=== PATIENT | female | born 1990 | race Hispanic/Latino ===

== ENCOUNTER 2017-12-03 20:08 | Emergency (ER) | payer SELFPAY ==
--- NOTE | 2017-12-03 20:33 | ED.PDOC ---
History of Present Illness - General Chief Complaint: Lower Extremity Injury Stated Complaint: right pinky toe injury Time Seen by Provider: 12/03/17 20:30 Source: patient - History of Present Illness Initial Comments: THE PATIENT PRESENTS TO THE ED W/ COMPLAINT OF RIGHT 5TH TOE PAIN S/P STRIKING IT ON A WALL AT HOME. THE PATIENT HAS NO OTHER ACUTE COMPLAINTS. Occurred: yesterday Pain - Lower Extremity: mild: Right Foot Method of Injury: direct blow Improving Factors: immobilization Worsening Factors: movement Allergies/Adverse Reactions: Allergies Penicillins Allergy (Verified 12/03/17 20:29) Home Medications: Ambulatory Orders Benzocaine (Rectal) [Americaine] 20 % PA BID PRN #30 oin 03/29/15 Review of Systems - Review of Systems Musculoskeletal: States: see HPI All other Systems: Reviewed and Negative Past Medical History (General) - Patient Medical History Hx Seizures: No Hx Stroke: No Hx Dementia: No Hx Asthma: No Hx of COPD: No Hx Cardiac Disorders: No Hx Congestive Heart Failure: No Hx Pacemaker: No Hx Hypertension: No Hx Thyroid Disease: No Hx Diabetes: No Hx Gastroesophageal Reflux: No Hx Renal Disease: No Hx of HIV: No Hx MRSA: No Surgical History: appendectomy, cholecystectomy - Vaccination History Hx Tetanus, Diphtheria Vaccination: Yes Hx Influenza Vaccination: No Hx Pneumococcal Vaccination: No - Social History Hx Tobacco Use: No Hx Alcohol Use: No Hx Substance Use: No Hx Substance Use Treatment: No Hx Depression: No - Female History Hx Last Menstrual Period: 05/31/13 Patient : No Expected Date of Delivery:: 03/07/14 Family Medical History - Family History Mother Maternal Grandparents Living Status: Hx Family Diabetes: Yes Mother Maternal Living Status: Still Living Hx Family Asthma: Yes Hx Family;Other: Pt mother has asthma Grandparents Living Status: Hx Family Stroke: Yes Hx Family;Other: Pt states on her fathers side her grandfather had a stroke Physical Exam - Physical Exam General Appearance: Alert, Comfortable Eyes, Ears, Nose, Throat: PERRL/EOMI Neck: non-tender, full range of motion Cardiovascular/Respiratory: regular rate, rhythm Gastrointestinal/Abdominal: non-tender, no organomegaly Back: normal inspection Leg: normal inspection Knee: normal inspection Ankle: normal inspection Foot: other - THERE IS TTP OF THE RIGHT 5TH TOE WELL THE DORSUM OF THE MIDFOOT. THERE IS NO TENDERNESS IN THE 5TH METATARSAL Progress - Progress Progress: 12/03/17 20:34 MDM PATIENT PRESENTATION APPEARS TO BE CONSISTENT WITH INJURIES DUE TO TRAUMA. WILL ORDER IMAGING OF AREAS THAT WERE INJURED(RIGHT FOOT) TO EVALUATE FOR EMERGENT PATHOLOGY IN THESE AREAS. IF NOTHING EMERGENT FOUND, DISPO WILL BE HOME. 12/03/17 22:07 THE PATIENT IS DOING WELL AT THIS TIME. SHE HAS BEEN ADVISED THAT HER RIGHT FOOT X-RAY IS NOTED TO SHOW A FX OF THE RIGHT 5TH TOE AT THIS TIME. SHE IS ADVISED SHE MUST FOLLOW UP WITH HER PCP NOTED IN HER D/C INSTRUCTIONS AND TO RETURN TO THE ED IF ANY ACUTE CONCERNS ARISE. - Results/Orders Results/Orders: RIGHT FOOT X-RAY: +FX OF THE 5TH TOE Departure - Departure Clinical Impression: Toe fracture, right Qualifiers: Encounter type: initial encounter Toe: unspecified toe Fracture alignment: nondisplaced Disposition: Discharge to Home or Self Care Departure Forms: ED Discharge - Pt. Copy, Patient Portal Self Enrollment Instructions: DI for Trauma, Foot Fracture (DC) Referrals: Denisse Barksdale NP [Primary Care Provider] - 1-5 Days (PLEASE SEE YOUR PCP IN 3 DAYS FOR RE-EVALUATION AND CARE. PLEASE WEAR POST OPERATIVE SHOE UNTIL CLEARED BY YOUR PCP. PLEASE RETURN TO THE ED IF YOU HAVE ANY ACUTE ISSUES ARISE.) Home Medications: Ambulatory Orders Benzocaine (Rectal) [Americaine] 20 % PA BID PRN #30 oin 03/29/15
--- NOTE | 2017-12-03 21:43 | RAD ---
EXAM: Foot,Right 3 Views CLINICAL INDICATION: 27-year-old female status post trauma, hit foot on bathroom door. TECHNIQUE: Three views RIGHT foot were obtained in AP, lateral and oblique projections COMPARISON: None. FINDINGS: Mildly displaced fracture of the base of the medial aspect of the proximal phalanx of the fifth digit. The joint spaces are preserved. No soft tissue abnormalities are seen. Hallux valgus deformity. IMPRESSION: Fifth digit fracture. Electronically signed by: Leida Hernandez MD 12/03/2017 9:42 PM CDT
[2017-12-03] MEDS: ACETAMINOPHEN 325 MG TAB PO ONE (22:55)
[2017-12-03 23:07] VITALS: BP 128/78; TEMP 97.8; O2SAT 98
== END 2017-12-03 23:07 | disposition home or self-care (01) ==
LOC: ER 20:08
DX: S92.511A Displaced fracture of proximal phalanx of right lesser toe(s), initial encounter for closed fracture (principal); W22.09XA Striking against other stationary object, initial encounter; Y92.009 Unspecified place in unspecified non-institutional (private) residence as the place of occurrence of the external cause

== ENCOUNTER 2018-06-17 12:58 | Emergency (ER) | payer SELFPAY ==
[2018-06-17] MEDS ORDERED: ONDANSETRON INJ 4 MG/2 ML VIAL IV ONE (13:24)
[2018-06-17] MEDS ORDERED: HYOSCYAMINE SULFATE 0.5 MG/ML VIAL IV ONE (13:25)
[2018-06-17] MEDS ORDERED: PANTOPRAZOLE SODIUM IV 40 MG VIAL IV ONE (13:25)
[2018-06-17] MEDS ORDERED: KETOROLAC TROMETHAMINE INJ 30 MG/ML VIAL IV ONE (13:25)
--- NOTE | 2018-06-17 13:28 | ED.PDOC ---
History of Present Illness - General Chief Complaint: Abdominal Pain Stated Complaint: abdominal pain, nausea Time Seen by Provider: 06/17/18 13:20 Information Source: patient Exam Limitations: no limitations - History of Present Illness Initial Comments: Onset RUQ pain with n/v x 6 this am. Took laxative last pm with BM today. Denies fever, dysuria, back pain, or hx of gastritis. Pt had GB removed in past Abdominal Pain Onset Location: RUQ Pain Radiation: no radiation Quality: severe, burning, cramping Timing/Duration: 4-6 hours Improving Factors: movement Worsening Factors: nothing Associated Symptoms: nausea/vomiting Review of Systems - Review of Systems Constitutional: Denies: chills, fever EENTM: States: no symptoms reported Respiratory: States: no symptoms reported Cardiology: States: no symptoms reported Gastrointestinal/Abdominal: States: abdominal pain, constipation, nausea, vomiting Genitourinary: Denies: dysuria, frequency, pain Musculoskeletal: States: no symptoms reported Skin: States: no symptoms reported Neurological: States: no symptoms reported Endocrine: States: no symptoms reported Hematologic/Lymphatic: States: no symptoms reported Past Medical History (General) - Patient Medical History Hx Seizures: No Hx Stroke: No Hx Dementia: No Hx Asthma: No Hx of COPD: No Hx Cardiac Disorders: No Hx Congestive Heart Failure: No Hx Pacemaker: No Hx Hypertension: No Hx Thyroid Disease: No Hx Diabetes: No Hx Gastroesophageal Reflux: No Hx Renal Disease: No Hx of HIV: No Hx MRSA: No Surgical History: appendectomy, cholecystectomy - Vaccination History Hx Tetanus, Diphtheria Vaccination: No Hx Influenza Vaccination: No Hx Pneumococcal Vaccination: No - Social History Hx Tobacco Use: Yes Hx Alcohol Use: No Hx Substance Use: No Hx Substance Use Treatment: No Hx Depression: No - Female History Hx Last Menstrual Period: 05/31/13 Patient : No Expected Date of Delivery:: 03/07/14 Family Medical History - Family History Mother Maternal Grandparents Living Status: Hx Family Diabetes: Yes Mother Maternal Living Status: Still Living Hx Family Asthma: Yes Hx Family;Other: Pt mother has asthma Grandparents Living Status: Hx Family Stroke: Yes Hx Family;Other: Pt states on her fathers side her grandfather had a stroke Physical Exam - Physical Exam General Appearance: Alert, Obvious distress Eyes, Ears, Nose, Throat Exam: PERRL/EOMI Respiratory: lungs clear, normal breath sounds Cardiovascular/Chest: normal peripheral pulses, regular rate, rhythm, no edema Gastrointestinal/Abdominal: normal bowel sounds, soft, tenderness - in RUQ without guarding or rebound Back Exam: normal inspection, no CVA tenderness Extremity: normal range of motion, non-tender, normal inspection, no pedal edema Skin Exam: normal color Lymphatic: no adenopathy Departure - Departure Clinical Impression: Pyelonephritis Disposition: Discharge to Home or Self Care Condition: Fair Departure Forms: ED Discharge - Pt. Copy, Patient Portal Self Enrollment Instructions: DI for Abdominal Pain-Adult Referrals: Denisse Barksdale NP [Primary Care Provider] - 1-2 Weeks Prescriptions: Ondansetron [Zofran Odt] 4 mg PO Q4HR PRN #20 tab PRN Reason: Nausea RX: Tramadol HCl 50 mg PO Q6HR PRN #20 tab PRN Reason: Moderate To Severe Pain RX: Levofloxacin 750 mg PO DAILY #5 tablet Home Medications: Ambulatory Orders Ondansetron [Zofran Odt] 4 mg PO Q4HR PRN #20 tab 06/17/18 RX: Levofloxacin 750 mg PO DAILY #5 tablet 06/17/18 RX: Tramadol HCl 50 mg PO Q6HR PRN #20 tab 06/17/18
[2018-06-17] MEDS ORDERED: PROMETHAZINE HCL INJ 12.5 MG in SODIUM CHLORIDE 0.9% 50ML 50 ML IVPB ONE (14:12)
[2018-06-17] MEDS ORDERED: SODIUM CHLORIDE 0.9% 1000ML 1,000 ML IVS ONE (14:13)
[2018-06-17] MEDS ORDERED: cefTRIAXone SODIUM 1 GM in SODIUM CHL 0.9% 50ML MIN-BAG+ 50 ML IVPB ONE (14:13)
[2018-06-17] MEDS ORDERED: MORPHINE SULFATE INJ 10 MG/ML VIAL IV ONE (14:13)
--- NOTE | 2018-06-17 14:16 | RAD ---
EXAM DESCRIPTION: KUB CLINICAL HISTORY: ruq PAIN COMPARISON: CT abdomen and pelvis April 26, 2011 TECHNIQUE: KUB FINDINGS: Small punctate densities in the right upper and right lower abdomen are thought to be colonic contents. No renal calculi. No small bowel dilatation to suggest obstruction. There is an otherwise unremarkable bowel gas pattern. There is no mass visceromegaly. IMPRESSION: No acute process. Electronically signed by: Baltazar Wall MD 06/17/2018 2:15 PM CREW MESS ATTENDANT
[2018-06-17] MEDS ORDERED: PROMETHAZINE HCL INJ 25 MG/ML VIAL ONE (14:24)
[2018-06-17] MEDS ORDERED: cefTRIAXone SODIUM 1 GM VIAL ONE (14:24)
[2018-06-17] MEDS ORDERED: SODIUM CHLORIDE 0.9% 50ML 50 ML ONE (14:25)
[2018-06-17 15:59] VITALS: BP 117/70; TEMP 98.3; O2SAT 98
== END 2018-06-17 16:01 | disposition home or self-care (01) ==
LOC: ER 12:58
DX: N12 Tubulo-interstitial nephritis, not specified as acute or chronic (principal); R10.11 Right upper quadrant pain; Z90.49 Acquired absence of other specified parts of digestive tract; Z87.891 Personal history of nicotine dependence
CPT/HCPCS: 74018; 80053; 81001; 85025; 87086; A4216; J0696; J1885; J2270; J2405; J2550; J7030

== ENCOUNTER → 2018-07-12 | Outpatient (CLI) | payer OTHER ==
--- NOTE | 2018-07-12 15:36 | CT ---
EXAM DESCRIPTION: Abdomen/Pelvis w/wo Contrast: Computed Tomography. CLINICAL HISTORY: ABDOMINAL PAIN. Right lower quadrant. Cholecystectomy and appendectomy COMPARISON: CT abdomen and pelvis with contrast 04/26/2011. TECHNIQUE: Spiral-axial scans at 5 x 5 mm intervals through the abdomen and pelvis before and after standard dose nonionic IV contrast. No oral contrast. Coronal and sagittal 2.0 mm reconstructions. 5 mm Delayed helical-axial scans, liver through the pubic symphysis. No adverse reactions. Total Exam DLP 1430.01 mGy - cm. This exam was performed according to our departmental CT dose-optimization program which includes automated exposure control, adjustment of the mA and/or kV according to patient size and/or use of iterative reconstruction technique; to reduce radiation dose to as low as reasonably achievable (ALARA). FINDINGS: Lung bases and pleura: Negative. Liver, Stomach, Spleen, Adrenal Glands: Unremarkable. Pancreas, Gallbladder, Ducts: Cholecystectomy with surgical clips in the gallbladder fossa and no fluid minimal duct dilation common bile duct. Pancreas is negative.. Kidneys and Ureters: Small cyst upper pole right kidney, otherwise negative. No hydronephrosis or perinephric fluid bilaterally. Normal caliber of the included ureters. Mesentery: Negative. Aorta: Unremarkable. Small Bowel: Contains minimal fluid. No distention or air-fluid levels. Terminal Ileum/Cecum: Normal caliber. Minimal fecal matter in the cecum. Surgical clips on the inferior cecum. Normal surrounding density. Colon: Unremarkable. Pelvic Organs: Area of low-density in the posterior fundus of the uterus. Minimal fluid in the cul-de-sac. No definite pelvic mass. Spine and Bony Pelvis: Negative. Abdominal Wall/Back Soft Tissues: Unremarkable. IMPRESSION: 1. Minimal fluid in the cul-de-sac of the pelvis. This could be due to recently ruptured ovarian cyst or other urogenital process. No extravasated contrast. Probable fibroid in the posterior fundus of the uterus. Electronically signed by: Tom Cordova MD 07/12/2018 3:34 PM CHILI PEPPER GRINDER
== END ==
LOC: CT 08:23
PROVIDERS: ATTEND Nurse Practitioner Family
DX: R10.9 Unspecified abdominal pain (principal)

== ENCOUNTER 2018-09-04 15:33 | Emergency (ER) | payer SELFPAY ==
--- NOTE | 2018-09-04 16:02 | ED.PDOC ---
History of Present Illness - General Chief Complaint: General Stated Complaint: Pt complains of numbness and tingling in the L arm Time Seen by Provider: 09/04/18 15:54 Source: patient Exam Limitations: no limitations - History of Present Illness Initial Comments: Pt has had intermittant paresthesias to L arm x 4-5 days which extend to first three digits of her hand. Pt has some pain in L trapezius with raising of L hand behind head Timing/Duration: intermittent Severity: moderate Improving Factors: movement Worsening Factors: other - worse with arm hanging down her side Associated Symptoms: denies symptoms Allergies/Adverse Reactions: Allergies NO KNOWN ALLERGY Allergy (Verified 09/04/18 15:54) Home Medications: Ambulatory Orders Indomethacin ER [Indocin ER] 75 mg PO BID #14 cap 09/04/18 Orphenadrine Citrate [Orphenadrine Citrate ER] 100 mg PO BID PRN #14 tab 09/04/18 Review of Systems - Review of Systems Constitutional: States: no symptoms reported EENTM: States: no symptoms reported Respiratory: States: no symptoms reported Cardiology: States: no symptoms reported Musculoskeletal: Denies: joint pain, muscle pain, neck pain Skin: States: no symptoms reported Neurological: States: numbness, paresthesia. Denies: weakness Endocrine: States: no symptoms reported Hematologic/Lymphatic: States: no symptoms reported Past Medical History (General) - Patient Medical History Hx Seizures: No Hx Stroke: No Hx Dementia: No Hx Asthma: No Hx of COPD: No Hx Cardiac Disorders: No Hx Congestive Heart Failure: No Hx Pacemaker: No Hx Hypertension: No Hx Thyroid Disease: No Hx Diabetes: No Hx Gastroesophageal Reflux: No Hx Renal Disease: No Hx of HIV: No Hx MRSA: No - Vaccination History Hx Tetanus, Diphtheria Vaccination: No Hx Influenza Vaccination: No Hx Pneumococcal Vaccination: No Immunizations Up to Date: No - Social History Hx Tobacco Use: Yes Hx Alcohol Use: Yes Hx Substance Use: No Hx Substance Use Treatment: No Hx Depression: No - Female History Patient is a Female of Child Bearing Age (10 -59 yrs old): Yes Hx Last Menstrual Period: 05/31/13 Patient : No - Denies Expected Date of Delivery:: 03/07/14 Family Medical History - Family History Mother Maternal Grandparents Living Status: Hx Family Diabetes: Yes Mother Maternal Living Status: Still Living Hx Family Asthma: Yes Hx Family;Other: Pt mother has asthma Grandparents Living Status: Hx Family Stroke: Yes Hx Family;Other: Pt states on her fathers side her grandfather had a stroke Physical Exam - Physical Exam General Appearance: Alert, Comfortable Eye Exam: bilateral normal Ears, Nose, Throat: normal ENT inspection Neck: full range of motion, normal inspection, other - tender over L trapezius muscle with spasm Respiratory: chest non-tender, no respiratory distress Peripheral Pulses: radial,right: 2+, radial,left: 2+ Extremity: normal range of motion, non-tender, normal inspection Neurologic: no motor/sensory deficits, alert, oriented x 3 Skin Exam: normal color, warm/dry Lymphatic: no adenopathy Departure - Departure Clinical Impression: Myofascial pain on left side, Acute carpal tunnel syndrome of left wrist Disposition: Discharge to Home or Self Care Condition: Good Departure Forms: ED Discharge - Pt. Copy, Patient Portal Self Enrollment Referrals: Denisse Barksdale NP [Primary Care Provider] - 1-2 Weeks Prescriptions: Indomethacin ER [Indocin ER] 75 mg PO BID #14 cap Orphenadrine Citrate [Orphenadrine Citrate ER] 100 mg PO BID PRN #14 tab PRN Reason: Muscle Spasms Home Medications: Ambulatory Orders Indomethacin ER [Indocin ER] 75 mg PO BID #14 cap 09/04/18 Orphenadrine Citrate [Orphenadrine Citrate ER] 100 mg PO BID PRN #14 tab
[2018-09-04 16:20] VITALS: BP 124/85; TEMP 99.1; O2SAT 95
== END 2018-09-04 16:19 | disposition home or self-care (01) ==
LOC: ER 15:33
DX: G56.02 Carpal tunnel syndrome, left upper limb (principal); M79.18 Myalgia, other site; Z87.891 Personal history of nicotine dependence

== ENCOUNTER 2018-11-23 23:45 | Emergency (ER) | payer SELFPAY ==
[2018-11-23] MEDS ORDERED: LACTATED RINGERS 1,000 ML IVS ONE (23:55)
--- NOTE | 2018-11-24 00:19 | ED.PDOC ---
History of Present Illness - General Chief Complaint: Headache Stated Complaint: headache, fast HR, blurred vision, shakey 2 weeks Time Seen by Provider: 11/23/18 23:49 Source: patient Exam Limitations: no limitations - History of Present Illness Initial Comments: Dania Fenton 28 y/o female with history of BD came to ER with intermittent throbbing left sided periocular and temporal headaches for the last 2 weeks which gradually got worse today becoming shaky and feels heart was racing and chest wall heaviness.[place] nauseated but no vomiting has also been having tunnel vision left eye when her headaches happens.Denies history of TBI in the past,no migraine headaches.Seen here a week ago for uti was prescribed antibiotics. Timing/Duration: getting worse, intermittent, other - 2 weeks Severity: moderate Improving Factors: nothing Worsening Factors: nothing Associated Symptoms: other - see hpi Allergies/Adverse Reactions: Allergies NO KNOWN ALLERGY Allergy (Verified 11/23/18 23:55) Home Medications: Ambulatory Orders ARIPiprazole [Abilify] 10 mg PO DAILY 11/23/18 Hydroxyzine HCl 25 mg PO TID PRN 11/23/18 Oxcarbazepine [Trileptal] mg PO 11/23/18 Prazosin HCl 2 mg PO BEDTIME 11/23/18 Review of Systems - Review of Systems Constitutional: States: no symptoms reported EENTM: States: no symptoms reported Respiratory: States: no symptoms reported Cardiology: States: see HPI, palpitations Gastrointestinal/Abdominal: States: no symptoms reported Genitourinary: States: no symptoms reported Musculoskeletal: States: no symptoms reported Skin: States: no symptoms reported Neurological: States: see HPI, headache Endocrine: States: no symptoms reported Hematologic/Lymphatic: States: no symptoms reported All other Systems: Reviewed and Negative, No Change from Baseline Past Medical History (General) - Patient Medical History Hx Seizures: No Hx Stroke: No Hx Dementia: No Hx Asthma: No Hx of COPD: No Hx Cardiac Disorders: No Hx Congestive Heart Failure: No Hx Pacemaker: No Hx Hypertension: No Hx Thyroid Disease: No Hx Diabetes: No Hx Gastroesophageal Reflux: No Hx Renal Disease: No Hx Cancer: No Hx of HIV: No Hx Hepatitis C: No Hx MRSA: No Hx Other PMH: Yes - Bipolar Disorder Surgical History: appendectomy, cholecystectomy - Vaccination History Hx Tetanus, Diphtheria Vaccination: No Hx Influenza Vaccination: No Hx Pneumococcal Vaccination: No - Social History Hx Tobacco Use: Yes Hx Alcohol Use: Yes - occasional Hx Substance Use: No Hx Substance Use Treatment: No Hx Depression: No - Female History Hx Last Menstrual Period: 10/08/18 Patient : No - Denies Family Medical History - Family History Mother Maternal Grandparents Living Status: Hx Family Diabetes: Yes Mother Maternal Living Status: Still Living Hx Family Asthma: Yes Hx Family;Other: Pt mother has asthma Grandparents Living Status: Hx Family Stroke: Yes Hx Family;Other: Pt states on her fathers side her grandfather had a stroke Physical Exam - Physical Exam General Appearance: Alert, Comfortable, No apparent distress Eye Exam: bilateral normal Ears, Nose, Throat: hearing grossly normal, normal ENT inspection, normal pharynx Neck: non-tender, full range of motion, supple, normal inspection Respiratory: chest non-tender, lungs clear, normal breath sounds, no respiratory distress Cardiovascular/Chest: normal peripheral pulses, regular rate, rhythm, no murmur Peripheral Pulses: radial,right: 2+, radial,left: 2+ Gastrointestinal/Abdominal: normal bowel sounds, non tender, soft, no organomegaly Back Exam: no CVA tenderness, no vertebral tenderness Extremity: no pedal edema, no calf tenderness Neurologic: alert, oriented x 3 Skin Exam: normal color, warm/dry Progress - Progress Progress: 11/24/18 00:25 Vital Signs - 8 hr 11/23/18 23:45 Temperature 97.7 F Pulse Rate [ 114 H monitor] Respiratory 18 Rate Blood Pressure 153/91 [Left Arm] O2 Sat by Pulse 99 Oximetry 11/24/18 01:47 HR-54;BP-115/76 - Results/Orders Results/Orders: 11/23/18 23:54 IV Care:Saline Lock per Protoc QSHIFT URINALYSIS Stat 11/24/18 00:15 EKG STAT Laboratory Results - last 24 hr 11/23/18 11/23/18 11/23/18 23:54 23:54 23:54 WBC 9.8 RBC 4.52 Hgb 12.5 Hct 38.1 MCV 84.2 MCH 27.7 MCHC 32.9 L RDW 13.9 Plt Count 311 MPV 9.4 Absolute Neuts (auto) 6.00 Absolute Lymphs (auto) 3.00 Absolute Monos (auto) 0.40 Absolute Eos (auto) 0.30 Absolute Basos (auto) 0.10 Neutrophils % 60.8 Lymphocytes % 30.6 Monocytes % 4.4 Eosinophils % 3.5 Basophils % 0.7 PT 9.6 INR 0.96 PTT (SP) 23.5 D-Dimer, Quantitative 0.25 Sodium 140 Potassium 3.5 L Chloride 107 Carbon Dioxide 24 Anion Gap 12.5 BUN < 5 L Creatinine 0.59 L BUN/Creatinine Ratio 8.5 L Random Glucose 135 H Serum Osmolality 278.7 Lactic Acid 1.3 Calcium 9.1 Magnesium 2.1 Total Bilirubin 0.3 Direct Bilirubin < 0.1 Indirect Bilirubin 0.2 AST 25 ALT 27 Alkaline Phosphatase 58 Creatine Kinase 338 H* CK-MB (CK-2) 5.5 H* CK-MB (CK-2) % 1.63 Troponin I < 0.02 Serum Total Protein 7.1 Albumin 4.0 Serum HCG, Qual 11/23/18 23:54 WBC RBC Hgb Hct MCV MCH MCHC RDW Plt Count MPV Absolute Neuts (auto) Absolute Lymphs (auto) Absolute Monos (auto) Absolute Eos (auto) Absolute Basos (auto) Neutrophils % Lymphocytes % Monocytes % Eosinophils % Basophils % PT INR PTT (SP) D-Dimer, Quantitative Sodium Potassium Chloride Carbon Dioxide Anion Gap BUN Creatinine BUN/Creatinine Ratio Random Glucose Serum Osmolality Lactic Acid Calcium Magnesium Total Bilirubin Direct Bilirubin Indirect Bilirubin AST ALT Alkaline Phosphatase Creatine Kinase CK-MB (CK-2) CK-MB (CK-2) % Troponin I Serum Total Protein Albumin Serum HCG, Qual Negative discuss test result with patient stated feeling better - EKG/XRAY/CT EKG: Sinus, Tachy, no ST T wave changes, Unchanged from - [address] Ordered: Yes - head-no acute intracranial abormality Departure - Departure Clinical Impression: Headache above the eye region, Heart palpitations Time of Disposition: 01:48 Disposition: Discharge to Home or Self Care Condition: Good Departure Forms: ED Discharge - Pt. Copy, Patient Portal Self Enrollment Instructions: DI for Headache Referrals: Denisse Barksdale NP [Primary Care Provider] - 1-2 Weeks Home Medications: Ambulatory Orders ARIPiprazole [Abilify] 10 mg PO DAILY 11/23/18 Hydroxyzine HCl 25 mg PO TID PRN 11/23/18 Oxcarbazepine [Trileptal] mg PO 11/23/18 Prazosin HCl 2 mg PO BEDTIME 11/23/18 Additional Instructions: continue with all home medications;Follow up with primary Md 25 November 2018 for recheck;May take over the counter Aleve 1-2 tablets am/pm as needed for headache;Return to ER as needed
[2018-11-24] MEDS ORDERED: DEXAMETHASONE INJ 4 MG/ML VIAL IV ONE (00:22)
[2018-11-24] MEDS ORDERED: diphenhydrAMINE HCL 50 MG/ML VIAL IM ONE (00:22)
[2018-11-24] MEDS ORDERED: MORPHINE SULFATE INJ 10 MG/ML VIAL IV ONE (00:22)
--- NOTE | 2018-11-24 00:54 | CT ---
EXAM DESCRIPTION: Head CLINICAL HISTORY: 28 years Female headache COMPARISON: None TECHNIQUE: Images were obtained in axial, sagittal, and coronal planes. This exam was performed according to our departmental dose-optimization program which includes use of Automated Exposure Control, adjustment of the mA and/or kV according to patient size and/or use of iterative reconstruction technique. FINDINGS: Ventricular system appears normal. No abnormal areas of increased or decreased attenuation are seen involving the brain parenchyma. No extra-axial fluid collections noted. No evidence for skull fracture. Symmetric aeration mastoid air cells bilaterally. Unremarkable paranasal sinuses. IMPRESSION: No acute intracranial abnormality. No evidence for hemorrhage, mass lesion, or large acute infarction. Electronically signed by: Liana Ford MD 11/24/2018 12:52 AM CDT
[2018-11-24] MEDS ORDERED: KETOROLAC TROMETHAMINE INJ 30 MG/ML VIAL IV ONE (01:06)
[2018-11-24] MEDS ORDERED: PROCHLORPERAZINE INJ 10 MG/2 ML VIAL IV ONE (01:22)
[2018-11-24 02:29] VITALS: O2SAT 99
[2018-11-24 02:31] VITALS: BP 120/69; TEMP 97.1
== END 2018-11-24 02:31 | disposition home or self-care (01) ==
LOC: ER 23:45 → SUPCPDRO 23:45 → ER 11-24 02:31
DX: R51 Headache (principal); R00.2 Palpitations; R00.0 Tachycardia, unspecified; R11.0 Nausea; F31.9 Bipolar disorder, unspecified; Z87.891 Personal history of nicotine dependence; Z79.899 Other long term (current) drug therapy
CPT/HCPCS: 36415; 70450; 80048; 80076; 82550; 82553; 83605; 84484; 84703; 85025; 85379; 85610; 85730; 93005; J0780; J1100; J1200; J1885; J2270; J7120

== ENCOUNTER 2018-12-23 22:47 | Emergency (ER) | payer SELFPAY ==
[2018-12-23] MEDS ORDERED: HYDROcodone 7.5MG/APAP 325MG 1 EA TAB PO ONE (22:56)
[2018-12-23] MEDS ORDERED: PROMETHAZINE HCL INJ 25 MG/ML VIAL IM ONE (22:56)
[2018-12-23] MEDS ORDERED: KETOROLAC TROMETHAMINE INJ 30 MG/ML VIAL IM ONE (22:56)
[2018-12-23] MEDS ORDERED: predniSONE 20 MG TAB PO ONE (22:57)
[2018-12-24] MEDS ORDERED: SODIUM CHLORIDE 0.9% 1000ML 1,000 ML IVS ONE (00:06)
--- NOTE | 2018-12-24 00:37 | CT ---
PROCEDURE: Head CLINICAL HISTORY: 28 years Female severe headache 3 days COMPARISON: None. TECHNIQUE: Contiguous axial CT images obtained through the brain without IV contrast. This exam was performed according to our department optimization program which includes automated exposure control, adjustment of the mA and/or kv according to patient size and/or use of iterative reconstruction technique. FINDINGS: The ventricles and sulci are within normal limits for the patient's age. No midline shift or mass effect. No masses identified. No acute intracranial hemorrhage. No fluid or significant mucosal thickening in the visualized paranasal sinuses. No depressed calvarial fractures. IMPRESSION: No acute intracranial abnormality is identified. Electronically signed by: Bambi Reyes MD 12/24/2018 12:35 AM CDT
[2018-12-24] MEDS ORDERED: diazePAM 5 MG TAB PO ONE (01:05)
--- NOTE | 2018-12-24 01:08 | ED.PDOC ---
History of Present Illness - General Chief Complaint: Headache Stated Complaint: headache Time Seen by Provider: 12/23/18 22:49 Source: patient Exam Limitations: no limitations - History of Present Illness Initial Comments: the patient is a 28-year-old female presenting to emergency room secondary to 3 days of fairly severe headache. She reports this is about the worst headache she has had. Mild photophobia. She has had some nausea and vomiting. Very poor sleep. She does report significant history of migraines and does take daily medications for headaches. No syncope or near syncope. No focal neurological changes. No recent trauma. She does not recall having had a head CT in the past for workup of her headache. Timing/Duration: other - 3 days Severity: severe Improving Factors: nothing Worsening Factors: nothing Associated Symptoms: headaches, loss of appetite, malaise, nausea/vomiting Allergies/Adverse Reactions: Allergies NO KNOWN ALLERGY Allergy (Verified 11/23/18 23:55) Home Medications: Ambulatory Orders ARIPiprazole [Abilify] 10 mg PO TID 11/23/18 Hydroxyzine HCl 25 mg PO TID PRN 11/23/18 Oxcarbazepine [Trileptal] 300 mg PO DAILY 11/23/18 Prazosin HCl 2 mg PO BEDTIME 11/23/18 Review of Systems - Review of Systems Constitutional: States: malaise EENTM: States: no symptoms reported, other - mild jaw pain Respiratory: States: no symptoms reported Cardiology: States: no symptoms reported Gastrointestinal/Abdominal: States: nausea Genitourinary: States: no symptoms reported Musculoskeletal: States: no symptoms reported Skin: States: no symptoms reported Neurological: States: headache Endocrine: States: no symptoms reported All other Systems: No Change from Baseline Past Medical History (General) - Patient Medical History Hx Seizures: No Hx Stroke: No Hx Dementia: No Hx Asthma: No Hx of COPD: No Hx Cardiac Disorders: No Hx Congestive Heart Failure: No Hx Pacemaker: No Hx Hypertension: No Hx Thyroid Disease: No Hx Diabetes: No Hx Gastroesophageal Reflux: No Hx Renal Disease: No Hx Cancer: No Hx of HIV: No Hx Hepatitis C: No Hx MRSA: No Surgical History: appendectomy, cholecystectomy - Vaccination History Hx Tetanus, Diphtheria Vaccination: No Hx Influenza Vaccination: No Hx Pneumococcal Vaccination: No - Social History Hx Tobacco Use: Yes Hx Alcohol Use: Yes - occasional Hx Substance Use: No Hx Substance Use Treatment: No Hx Depression: No - Female History Patient is a Female of Child Bearing Age (10 -59 yrs old): Yes Hx Last Menstrual Period: 10/08/18 Patient : No Expected Date of Delivery:: 03/07/14 Family Medical History - Family History Mother Maternal Grandparents Living Status: Hx Family Diabetes: Yes Mother Maternal Living Status: Still Living Hx Family Asthma: Yes Hx Family;Other: Pt mother has asthma Grandparents Living Status: Hx Family Stroke: Yes Hx Family;Other: Pt states on her fathers side her grandfather had a stroke Physical Exam - Physical Exam General Appearance: Alert, No apparent distress Eye Exam: bilateral normal Ears, Nose, Throat: hearing grossly normal, normal ENT inspection, normal pharynx Neck: full range of motion, supple Respiratory: lungs clear, normal breath sounds, no respiratory distress, no accessory muscle use Cardiovascular/Chest: normal peripheral pulses, regular rate, rhythm, no edema Peripheral Pulses: radial,right: 2+, radial,left: 2+ Gastrointestinal/Abdominal: non tender, soft Rectal Exam: deferred Back Exam: no CVA tenderness, no vertebral tenderness Extremity: non-tender, normal inspection, no pedal edema, normal capillary refill 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 Workup here including laboratory work and head CT showed no overt etiology otherwise. She does have a history of migraines which is likely complicating the presentation here today. She has received several medications including IV fluids. Hopefully she will be able to rest comfortably tonight and wake up tomorrow doing better. She needs to discuss the daily headaches with her primary care doctor and see a neurologist if necessary. No evidence of any focal neurological changes. ER warnings were given for any worsening. - Results/Orders Results/Orders: head CT films show any acute pathology. Laboratory Results - last 24 hr 12/23/18 12/23/18 12/24/18 22:56 23:11 00:07 WBC 9.5 RBC 4.65 Hgb 13.1 Hct 38.6 MCV 83.0 MCH 28.2 MCHC 33.9 RDW 14.9 H Plt Count 362 MPV 8.8 Absolute Neuts (auto) 6.10 Absolute Lymphs (auto) 2.70 Absolute Monos (auto) 0.40 Absolute Eos (auto) 0.20 Absolute Basos (auto) 0.10 Neutrophils % 64.0 Lymphocytes % 28.6 Monocytes % 4.0 Eosinophils % 2.6 Basophils % 0.8 ESR Sodium Potassium Chloride Carbon Dioxide Anion Gap BUN Creatinine BUN/Creatinine Ratio Random Glucose Serum Osmolality Calcium Magnesium Total Bilirubin AST ALT Alkaline Phosphatase Serum Total Protein Albumin Globulin Albumin/Globulin Ratio TSH Urine Color Yellow Urine Appearance Sl cloudy Urine pH 6.0 Ur Specific [place] 1.020 Urine Protein Negative Urine Glucose (UA) Negative Urine Ketones Negative Urine Blood Negative Urine Nitrite Negative Urine Bilirubin Negative Urine Urobilinogen 0.2 Ur Leukocyte Esterase Large H Urine RBC 0 Urine WBC 1-3 Ur Epithelial Cells 10-20 Amorphous Sediment 1+ Urine Bacteria 2+ H Urine HCG, Qual Negative 12/24/18 12/24/18 00:07 00:07 WBC RBC Hgb Hct MCV MCH MCHC RDW Plt Count MPV Absolute Neuts (auto) Absolute Lymphs (auto) Absolute Monos (auto) Absolute Eos (auto) Absolute Basos (auto) Neutrophils % Lymphocytes % Monocytes % Eosinophils % Basophils % ESR 3 Sodium 137 Potassium 3.8 Chloride 105 Carbon Dioxide 24 Anion Gap 11.8 L BUN 13 Creatinine 0.64 BUN/Creatinine Ratio 20.3 H Random Glucose 98 Serum Osmolality 273.9 L Calcium 9.2 Magnesium 2.0 Total Bilirubin 0.4 AST 20 ALT 30 Alkaline Phosphatase 72 Serum Total Protein 7.6 Albumin 4.1 Globulin 3.5 Albumin/Globulin Ratio 1.2 TSH 2.76 Urine Color Urine Appearance Urine pH Ur Specific [place] Urine Protein Urine Glucose (UA) Urine Ketones Urine Blood Urine Nitrite Urine Bilirubin Urine Urobilinogen Ur Leukocyte Esterase Urine RBC Urine WBC Ur Epithelial Cells Amorphous Sediment Urine Bacteria Urine HCG, Qual Departure - Departure Clinical Impression: Headache Qualifiers: Headache type: new daily persistent Qualified Code(s): G44.52 - New daily persistent headache (NDPH) Disposition: Discharge to Home or Self Care Condition: Fair Departure Forms: ED Discharge - Pt. Copy, Patient Portal Self Enrollment Instructions: DI for Headache Diet: regular diet Activity: increase activity as tolerated Referrals: Yady Montanez CAMP DIRECTOR [Primary Care Provider] - 1-2 Weeks Home Medications: Ambulatory Orders ARIPiprazole [Abilify] 10 mg PO TID 11/23/18 Hydroxyzine HCl 25 mg PO TID PRN 11/23/18 Oxcarbazepine [Trileptal] 300 mg PO DAILY 11/23/18 Prazosin HCl 2 mg PO BEDTIME 11/23/18 Additional Instructions: the patient is a 28-year-old female presenting to emergency room secondary to a refractory headache for the last 3 days. Workup here including laboratory work and head CT showed no overt etiology otherwise. She does have a history of migraines which is likely complicating the presentation here today. She has received several medications including IV fluids. Hopefully she will be able to rest comfortably tonight and wake up tomorrow doing better. She needs to discuss the daily headaches with her primary care doctor and see a neurologist if necessary. No evidence of any focal neurological changes. ER warnings were given for any worsening.
[2018-12-24 02:04] VITALS: O2SAT 100
[2018-12-24 02:26] VITALS: BP 106/68; TEMP 97.9
== END 2018-12-24 02:25 | disposition home or self-care (01) ==
LOC: ER 22:47
DX: G44.52 New daily persistent headache (NDPH) (principal); R11.2 Nausea with vomiting, unspecified; H53.149 Visual discomfort, unspecified; Z87.891 Personal history of nicotine dependence; Z79.899 Other long term (current) drug therapy
CPT/HCPCS: 70450; 80053; 81001; 81025; 83735; 84443; 85025; 85651; 87086; J1885; J2550; J7030; J7512

== ENCOUNTER 2018-12-24 19:53 | Emergency (ER) | payer SELFPAY ==
[2018-12-24] MEDS ORDERED: methylPREDNISolone SODIUM SUC 125 MG/2 ML VIAL IV ONE (20:45)
[2018-12-24] MEDS ORDERED: ORPHENADRINE CITRATE 30 MG/ML AMP IV ONE (20:45)
[2018-12-24] MEDS ORDERED: SODIUM CHLORIDE 0.9% 1000ML 1,000 ML IVS ONE (20:45)
[2018-12-24] MEDS ORDERED: PROMETHAZINE HCL INJ 12.5 MG in SODIUM CHLORIDE 0.9% 50ML 50 ML IVPB ONE (20:47)
[2018-12-24] MEDS ORDERED: SUMAtriptan SUCCINATE INJ 6 MG/0.5 ML VIAL SUBCU ONE (20:51)
--- NOTE | 2018-12-24 20:55 | ED.PDOC ---
History of Present Illness - General Chief Complaint: Headache Stated Complaint: headache Time Seen by Provider: 12/24/18 20:21 Source: patient Exam Limitations: no limitations - History of Present Illness Timing/Duration: 24 hours Quality: severe, constant Head Injury Location: frontal, temporal Recent Head Trauma: no recent headache/trauma, frequent headaches, chronic headaches Improving Factors: nothing Worsening Factors: nothing Associated Symptoms: denies symptoms Allergies/Adverse Reactions: Allergies NO KNOWN ALLERGY Allergy (Verified 11/23/18 23:55) Home Medications: Ambulatory Orders ARIPiprazole [Abilify] 10 mg PO TID 11/23/18 Hydroxyzine HCl 25 mg PO TID PRN 11/23/18 Oxcarbazepine [Trileptal] 300 mg PO DAILY 11/23/18 Prazosin HCl 2 mg PO BEDTIME 11/23/18 Review of Systems - Review of Systems Constitutional: Denies: chills, fever EENTM: States: other - POS PHOTO/PHONOPHOBIA. . Denies: blurred vision, double vision, ear pain, nose congestion, throat pain, mouth pain Respiratory: States: no symptoms reported Cardiology: States: no symptoms reported Gastrointestinal/Abdominal: States: no symptoms reported Genitourinary: States: no symptoms reported Musculoskeletal: States: no symptoms reported Skin: States: no symptoms reported Neurological: States: headache. Denies: paresthesia, seizure, tingling, tremors, weakness Endocrine: States: no symptoms reported Hematologic/Lymphatic: States: no symptoms reported All other Systems: Reviewed and Negative Past Medical History (General) - Patient Medical History Hx Seizures: No Hx Stroke: No Hx Dementia: No Hx Asthma: No Hx of COPD: No Hx Cardiac Disorders: No Hx Congestive Heart Failure: No Hx Pacemaker: No Hx Hypertension: No Hx Thyroid Disease: No Hx Diabetes: No Hx Gastroesophageal Reflux: No Hx Renal Disease: No Hx Cancer: No Hx of HIV: No Hx Hepatitis C: No Hx MRSA: No Surgical History: appendectomy, cholecystectomy - Vaccination History Hx Tetanus, Diphtheria Vaccination: No Hx Influenza Vaccination: No Hx Pneumococcal Vaccination: No Immunizations Up to Date: No - Social History Hx Tobacco Use: Yes Hx Alcohol Use: Yes - occasional Hx Substance Use: No Hx Substance Use Treatment: No Hx Depression: No - Female History Patient is a Female of Child Bearing Age (10 -59 yrs old): Yes Hx Last Menstrual Period: 10/08/18 Patient : No Expected Date of Delivery:: 03/07/14 Family Medical History - Family History Mother Maternal Grandparents Living Status: Hx Family Diabetes: Yes Mother Maternal Living Status: Still Living Hx Family Asthma: Yes Hx Family;Other: Pt mother has asthma Grandparents Living Status: Hx Family Stroke: Yes Hx Family;Other: Pt states on her fathers side her grandfather had a stroke Physical Exam - Physical Exam General Appearance: Alert, Well Nourished Eyes, Ears, Nose, Throat Exam: PERRL/EOMI, normal ENT inspection, TMs normal, pharynx normal, photophobia Neck: non-tender, full range of motion, supple, normal inspection, other - NECK NTTP. NEG KERNIG'S AND BRUDZINSKY'S. Cardiovascular/Chest: normal peripheral pulses, regular rate, rhythm Respiratory: lungs clear, normal breath sounds Gastrointestinal/Abdominal: non tender, soft Extremity: non-tender, normal inspection Mental Status: alert, oriented x 3 Coordination/Gait: normal finger to nose, normal gait, negative Romberg's sign Motor/Sensory: no motor deficit, no sensory deficit, no pronator drift Skin Exam: warm/dry, normal color Lymphatic: no adenopathy Progress - Progress Progress: 12/24/18 20:53 PT HAD LABS AND CT LAST NIGHT THUS REPEAT IS NOT INDICATED. NO FEVER, NO AMS, NO NUCHAL RIGIDITY THUS NO CONCERN FOR MENINGITIS AND THUS SPINAL TAP IS NOT INDICATED. TREATING MIGRAINE WITH "COCKTAIL" OF NON-NARCOTICS. 12/24/18 22:02 I HAVE GIVEN IVF, STEROID, MUSCLE RELAXANT, PHENERGAN, SUMATRIPTAN. PT STILL ALERT AND NO RESPIRATORY DISTRESS. HEADLEY IMPROVING BUT NOT ABSENT. WILL ADD ADDITIONAL NON-NARCOTICS IN ATTEMPT TO AMELIORATE. 12/24/18 23:23 GAVE ATIVAN, BENADRYL, TORADOL. MIGRAINE VERY FAINT NOW. DC TO HOME WITH F/U. Departure - Departure Clinical Impression: Migraine Qualifiers: Migraine type: chronic without aura Status migrainosus presence: without status migrainosus Intractability: intractable Qualified Code(s): G43.719 - Chronic migraine without aura, intractable, without status migrainosus Disposition: Discharge to Home or Self Care Condition: Fair Departure Forms: ED Discharge - Pt. Copy, Patient Portal Self Enrollment Instructions: Migraine Headache (DC) Diet: resume usual diet Activity: increase activity as tolerated Referrals: Yady Montanez NP [Primary Care Provider] - 1-5 Days Home Medications: Ambulatory Orders ARIPiprazole [Abilify] 10 mg PO TID 11/23/18 Hydroxyzine HCl 25 mg PO TID PRN 11/23/18 Oxcarbazepine [Trileptal] 300 mg PO DAILY 11/23/18 Prazosin HCl 2 mg PO BEDTIME 11/23/18 Additional Instructions: Please see your regular doctor and keep the appointment with the neurologist on January 16.
[2018-12-24] MEDS ORDERED: PROMETHAZINE HCL INJ 25 MG/ML VIAL ONE (21:09)
[2018-12-24] MEDS ORDERED: SODIUM CHLORIDE 0.9% 50ML 50 ML ONE (21:09)
[2018-12-24] MEDS ORDERED: KETOROLAC TROMETHAMINE INJ 30 MG/ML VIAL IV ONE (22:07)
[2018-12-24] MEDS ORDERED: diphenhydrAMINE HCL 50 MG/ML VIAL IV STA ×2 (22:17)
[2018-12-24 23:33] VITALS: BP 127/72; TEMP 98.9; O2SAT 99
== END 2018-12-24 23:31 | disposition home or self-care (01) ==
LOC: ER 19:53
DX: G43.719 Chronic migraine without aura, intractable, without status migrainosus (principal); Z87.891 Personal history of nicotine dependence; Z79.899 Other long term (current) drug therapy
CPT/HCPCS: A4216; J1200; J1885; J2060; J2360; J2550; J2930; J3030; J7030

== ENCOUNTER 2019-03-20 21:21 | Emergency (ER) | payer SELFPAY ==
[2019-03-20 21:55] VITALS: TEMP 98.4
--- NOTE | 2019-03-20 22:55 | ED.PDOC ---
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 Initially thought it was UTI and drink extra water and cranberry juice and this did not improve it. She then believes she had a yeast infection and bought yeast medication but this also did not solve the problem. She presents with worsening pain and discharge. Patient denies any headache, blurry vision, dizziness, nausea, vomiting, diarrhea, chest pain, shortness of breath. Dysuria. Pain is worse with urination or intercourse. Things seemed to improve the pain. It is burning in nature as well as periodic. Quality: moderate, burning Onset Location: vaginal, urethral Radiation: none Activites at Onset: none Prior abdominal problems: none Sexual intercourse history: less than 2 months ago, single partner Improving Factors: nothing Worsening Factors: other - urination and intercourse. Associated Symptoms: abdominal pain, dysuria Allergies/Adverse Reactions: Allergies NO KNOWN ALLERGY Allergy (Verified 11/23/18 23:55) Home Medications: Ambulatory Orders ARIPiprazole [Abilify] 10 mg PO TID 11/23/18 Hydroxyzine HCl 25 mg PO TID PRN 11/23/18 Oxcarbazepine [Trileptal] 300 mg PO DAILY 11/23/18 Prazosin HCl [Prazosin Hydrochloride] 2 mg PO BEDTIME 11/23/18 Cefdinir [Omnicef] 300 mg PO BID #10 cap 03/20/19 Review of Systems - Review of Systems Constitutional: States: no symptoms reported EENTM: States: no symptoms reported Respiratory: States: no symptoms reported Cardiology: States: no symptoms reported Gastrointestinal/Abdominal: States: see HPI, abdominal pain, nausea Genitourinary: States: see HPI, discharge, dysuria, pain Musculoskeletal: States: no symptoms reported Skin: States: no symptoms reported Neurological: States: no symptoms reported Endocrine: States: no symptoms reported Hematologic/Lymphatic: States: no symptoms reported All other Systems: Reviewed and Negative Past Medical History (General) - Patient Medical History Hx Seizures: No Hx Stroke: No Hx Dementia: No Hx Asthma: No Hx of COPD: No Hx Cardiac Disorders: No Hx Congestive Heart Failure: No Hx Pacemaker: No Hx Hypertension: No Hx Thyroid Disease: No Hx Diabetes: No Hx Gastroesophageal Reflux: No Hx Renal Disease: No Hx Cancer: No Hx of HIV: No Hx Hepatitis C: No Hx MRSA: No Surgical History: appendectomy, cholecystectomy - Vaccination History Hx Tetanus, Diphtheria Vaccination: No Hx Influenza Vaccination: No Hx Pneumococcal Vaccination: No - Social History Hx Tobacco Use: Yes Hx Alcohol Use: Yes - occasional Hx Substance Use: No Hx Substance Use Treatment: No Hx Depression: No - Female History Hx Last Menstrual Period: 03/10/19 Patient : No Expected Date of Delivery:: 03/07/14 Family Medical History - Family History Mother Maternal Grandparents Living Status: Hx Family Diabetes: Yes Mother Maternal Living Status: Still Living Hx Family Asthma: Yes Hx Family;Other: Pt mother has asthma Grandparents Living Status: Hx Family Stroke: Yes Hx Family;Other: Pt states on her fathers side her grandfather had a stroke Physical Exam - Physical Exam General Appearance: Alert, Anxious, Well Developed, Well Groomed, Well Hydrated, Well Nourished Eyes, Ears, Nose, Throat Exam: PERRL/EOMI, normal ENT inspection, pharynx normal Neck: non-tender, full range of motion, supple, normal inspection Cardiovascular/Respiratory: regular rate, rhythm, no M/R/G, normal peripheral pulses, no JVD, normal breath sounds, no respiratory distress Gastrointestinal/Abdominal: normal bowel sounds, tenderness - suprapubic Pelvic Exam: external exam normal, no cerv. 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 Further history from patient shows that she has not been sexually active for the last 3 months and only recently returned home and began to have sexual relations with her . Gonorrhea and chlamydia are still pending, but this may well just be a change in the vaginal milieu secondary to restarting sexual relations. Patient to be discharged home with antibiotics for I have explained to the patient that if her tests come back positive we will contact her for further treatment. She voices understanding and agreement with the plan of care. - Results/Orders Results/Orders: 03/20/19 21:40 Urine Culture Stat 03/20/19 22:29 GC CHLAMYDIA RNA,TMA Routine Laboratory Results - last 24 hr 03/20/19 03/20/19 21:40 22:17 Urine Color Yellow Urine Appearance Clear Urine pH 5.5 Ur Specific [place] 1.020 Urine Protein Negative Urine Glucose (UA) Negative Urine Ketones Negative Urine Blood Negative Urine Nitrite Negative Urine Bilirubin Negative Urine Urobilinogen 0.2 Ur Leukocyte Esterase Small H Urine RBC 0 Urine WBC 3-5 H Ur Epithelial Cells 1-3 Urine Bacteria 1+ Urine HCG, Qual Negative Departure - Departure Clinical Impression: Vaginal discharge Urinary tract infection Qualifiers: Urinary tract infection type: acute cystitis Hematuria presence: without hematuria Qualified Code(s): N30.00 - Acute cystitis without hematuria Time of Disposition: 23:21 Disposition: Discharge to Home or Self Care Condition: Good Departure Forms: ED Discharge - Pt. Copy, Patient Portal Self Enrollment Instructions: DI for Vaginal Discharge, DI for Urinary Tract Infection (UTI) Referrals: Yady Montanez, FIELD INSTRUCTOR [Primary Care Provider] - 1-5 Days Prescriptions: Cefdinir [Omnicef] 300 mg PO BID #10 cap Home Medications: Ambulatory Orders ARIPiprazole [Abilify] 10 mg PO TID 11/23/18 Hydroxyzine HCl 25 mg PO TID PRN 11/23/18 Oxcarbazepine [Trileptal] 300 mg PO DAILY 11/23/18 Prazosin HCl [Prazosin Hydrochloride] 2 mg PO BEDTIME 11/23/18 Cefdinir [Omnicef] 300 mg PO BID #10 cap 03/20/19
[2019-03-20 22:56] VITALS: BP 147/85; O2SAT 98
== END 2019-03-20 23:35 | disposition home or self-care (01) ==
LOC: ER 21:21
DX: N30.00 Acute cystitis without hematuria (principal); N89.8 Other specified noninflammatory disorders of vagina; Z79.899 Other long term (current) drug therapy; Z87.891 Personal history of nicotine dependence